=== PATIENT | male | born 1945 | race Caucasian/White ===

== ENCOUNTER → 2021-06-12 | Day surgery (SDC) | payer MEDICARE, OTHER ==
[~2021-06-12] MED LIST: Dextrose 5%-0.45% NaCl 1,000 ML IV SCH; Midazolam 1 MG/ML 2 ML SDV IV ONE; Midazolam 1 MG/ML 2 ML SDV ONE; fentaNYL 100 MCG/2 ML SDV IV ONE; fentaNYL 100 MCG/2 ML SDV ONE
--- NOTE | 2021-06-12 11:38 | OR ---
DATE: 06/12/2021 PROCEDURE: Esophagogastroduodenoscopy and multiple pinch biopsies. INSTRUMENT USED: GIF-HQ190 Olympus video panendoscope. PREMEDICATIONS: No oral or topical anesthesia used. Fentanyl 100 mcg intravenous, Versed 2 mg intravenous. Nasal O2 cannula. The procedure was done under pulse oximetry, BP recording, and monitoring manager. INDICATION: The patient with unexplained iron-deficiency anemia and positive FIT. Esophagogastroduodenoscopy is performed for detection of any active erosive lesions, Ferreira esophagus and/or malignancy also under consideration, H pylori status to be determined, endoscopic hemostasis therapy if needed. DESCRIPTION OF PROCEDURE: The scope was passed with ease. Adequate visualization of the esophagus was made from proximal to distal areas. No upper esophageal lesions identified. No distal esophageal stricture. No uphill or downhill esophageal varices. No Daisy-Negrete tear. No evidence of erosive esophagitis by Cumming criteria. No esophageal polyp or tumor mass identified. Z-line was seen at 40 cm distal to the oral verge. No proximal gastric varices noted. Gastric fundus examination by retroflexion showed no polypoid lesions. No gastric ulcer, malignant mass, or vascular ectasia identified. Gastric antral erosions were noted without bleeding from them. Duodenal bulb showed no ulcer. Visualized second part of the duodenum was unremarkable. Multiple pinch biopsies were taken from the gastric antrum and proximal body and sent for PyloriTek test for H pylori, and if negative in an hour, tissues will be sent for histopathology. No bleeding was noted from any of the visualized areas at the completion of examination. Photographs were taken of the duodenal bulb, gastric antrum, fundus, and distal esophagus. IMPRESSION: Gastric antral erosions. The patient tolerated the procedure well. [facility] /[id number]
--- NOTE | 2021-06-12 11:45 | LETTER ---
06/12/2021 Lissette Gong [facility] [address] [place] [id number] REL Rolo Gimenez : 1945 Dear Ms. Byrnesison Beltran: Mr. Rolo Gimenez had esophagogastroduodenoscopy done this morning and he tolerated the procedure well. I herewith send a copy of endoscopy note and photographs for your review. Thank you. Sincerely, Eri Shirley MD [facility] /[id number]
[2021-06-12 12:51] VITALS: BP 145/58; PULSE 56
== END | disposition home or self-care (01) ==
LOC: DL.ENDO 06:25
PROVIDERS: ATTEND Internal Medicine Gastroenterology
DX: K25.9 Gastric ulcer, unspecified as acute or chronic, without hemorrhage or perforation (principal); D50.9 Iron deficiency anemia, unspecified; R19.7 Diarrhea, unspecified; E66.09 Other obesity due to excess calories; I10 Essential (primary) hypertension; E11.9 Type 2 diabetes mellitus without complications; I25.10 Atherosclerotic heart disease of native coronary artery without angina pectoris; N40.0 Benign prostatic hyperplasia without lower urinary tract symptoms; K21.9 Gastro-esophageal reflux disease without esophagitis; D69.6 Thrombocytopenia, unspecified; D72.819 Decreased white blood cell count, unspecified; Z88.0 Allergy status to penicillin; Z95.5 Presence of coronary angioplasty implant and graft; Z68.29 Body mass index [BMI] 29.0-29.9, adult
CPT/HCPCS: 43239; 87077; J2250; J3010; J7042

== ENCOUNTER 2021-06-19 06:03 | Day surgery (SDC) | payer MEDICARE, OTHER ==
[~2021-06-19 06:03] MED LIST changes: -Midazolam 1 MG/ML 2 ML SDV IV ONE; +Sodium Chloride 0.9% 10 ML Syringe FLUSH PRN; -fentaNYL 100 MCG/2 ML SDV IV ONE
[2021-06-19] MEDS ORDERED: Midazolam 1 MG/ML 2 ML SDV IV ONE ×7 (06:04→07:56)
[2021-06-19] MEDS ORDERED: fentaNYL 100 MCG/2 ML SDV IV ONE ×4 (06:04→08:00)
--- NOTE | 2021-06-19 09:59 | OR ---
DATE: 06/19/2021 PROCEDURE: Total colonoscopy and cold snare polypectomy. INSTRUMENT USED: PCF-H190DL Olympus video colonoscope. PREMEDICATIONS: Fentanyl 125 mcg intravenous, Versed 4 mg intravenous, nasal O2 cannula. The procedure was done under pulse oximetry, BP recording, and manager inventory. INDICATION: The patient with positive FIT and anemia. Colonoscopic examination is done for detection of any polypoid lesions and removal, endoscopic hemostasis therapy if needed. DESCRIPTION OF PROCEDURE: Initial rectal exam was unremarkable. Rigid anoscopy showed small internal hemorrhoids without bleeding from them. The colonoscope was passed with ease. In the distal sigmoid colon, diminutive benign-appearing polyp was noted, photograph was taken, cold snare polypectomy was done, the tissue was retrieved and sent for histopathology. There was extensive diverticulosis with severe deformity involving the distal left colon. Technically difficult exam due to significant deformity. The scope was passed up to the ileocecal area. Photographs were taken of the normal-appearing cecum identified by landmarks of appendiceal orifice and double-bulged ileocecal folds. No bleeding was noted from any of the visualized areas at the commencement of the examination. The bowel preparation was found to be adequate, Lemhi scale 2 in the left and right colon, 3 in transverse colon, total score 7. No vascular ectasia. No large isolated ulcerations seen. No evidence of diffuse inflammatory bowel disease in the form of friability, contact bleeding, or ulcerations. Probing the proximal sides of folds and flexures using adequate distention and clearing up the stool material, withdrawal of the scope was made, cecum to rectum time over 6 minutes. No bleeding was noted from any of the visualized areas at the completion of examination. IMPRESSION: 1. Internal hemorrhoids. 2. Diverticulosis. 3. Diminutive colonic polyp. 4. Melanosis coli. The patient tolerated the procedure well. [facility] /[id number]
[2021-06-19 10:46] VITALS: BP 137/70; PULSE 55
--- NOTE | 2021-06-19 12:44 | LETTER ---
06/19/2021 RE: DENNIS GIMENEZ : 1945 JACQUE Marie [address], [id number] Dear Ms. Gong: Mr. Dennis Gimenez had colonoscopic examination done this morning and he tolerated the procedure well. I herewith send a copy of the endoscopy note and photographs for your review. Thank you. Sincerely, [facility] /[id number]
== END 2021-06-19 10:40 | disposition home or self-care (01) ==
LOC: DL.ENDO 06:03
PROVIDERS: ATTEND Internal Medicine Gastroenterology
DX: K63.5 Polyp of colon (principal); D64.9 Anemia, unspecified; K64.8 Other hemorrhoids; K57.30 Diverticulosis of large intestine without perforation or abscess without bleeding; K63.89 Other specified diseases of intestine; E66.09 Other obesity due to excess calories; I10 Essential (primary) hypertension; E11.9 Type 2 diabetes mellitus without complications; I25.10 Atherosclerotic heart disease of native coronary artery without angina pectoris; D69.6 Thrombocytopenia, unspecified; N40.0 Benign prostatic hyperplasia without lower urinary tract symptoms; Z88.0 Allergy status to penicillin; Z68.29 Body mass index [BMI] 29.0-29.9, adult
CPT/HCPCS: 82947; 88305; J2250; J3010; J7042

== ENCOUNTER 2022-12-04 13:05 | Emergency (ER) | payer OTHER, MEDICARE ==
[2022-12-04] MEDS ORDERED: Sodium Chloride 0.9% 10 ML Syringe IV ONE (13:06)
[2022-12-04] MEDS ORDERED: Propofol 200 MG/20 ML SDV IV ONE (13:06)
[2022-12-04] MEDS ORDERED: Ketamine 500 mg/10 ML MDV IV ONE (13:06)
[2022-12-04] MEDS ORDERED: Midazolam 1 MG/ML 2 ML SDV IV ONE (13:06)
[2022-12-04] MEDS ORDERED: Sodium Chloride 0.9% 500 ML IV ONE (13:06)
[2022-12-04] MEDS ORDERED: Ondansetron 4 MG/2 ML SDV IV ONE (13:06)
[2022-12-04] MEDS ORDERED: Lidocaine 1% 30 ML SDV ONE (13:06)
[2022-12-04 13:30] VITALS: BP 159/134; PULSE 94
[2022-12-04] MEDS ORDERED: fentaNYL 100 MCG/2 ML SDV IVPUSH ONE (13:30)
[2022-12-04] MEDS ORDERED: Acetaminophen/HYDROcodone 325-10 MG Tab PO ONE (16:02)
== END 2022-12-04 16:15 | disposition home or self-care (01) ==
LOC: DL.ED 13:05
DX: S82.851A Displaced trimalleolar fracture of right lower leg, initial encounter for closed fracture (principal); E78.00 Pure hypercholesterolemia, unspecified; I25.10 Atherosclerotic heart disease of native coronary artery without angina pectoris; I10 Essential (primary) hypertension; E11.9 Type 2 diabetes mellitus without complications; E66.9 Obesity, unspecified; Z88.0 Allergy status to penicillin; Z79.899 Other long term (current) drug therapy; Z79.84 Long term (current) use of oral hypoglycemic drugs; W18.40XA Slipping, tripping and stumbling without falling, unspecified, initial encounter
CPT/HCPCS: 01462; 27818; 73610; 93010; 96374; 99152; 99153; 99283; 99284; A9270; J2250; J2405; J2704; J3010; J3490; J7040

== ENCOUNTER 2023-06-28 02:47 | Emergency (ER) | payer OTHER ==
[2023-06-28 03:49] VITALS: PULSE 58
[2023-06-28] MEDS ORDERED: cloNIDine 0.1 MG Tab PO ONE (03:56)
[2023-06-28 04:00] VITALS: BP 213/88
[2023-06-28] MEDS ORDERED: Labetalol 20 MG/4 ML Syringe IVPUSH ONE (04:26)
== END 2023-06-28 06:54 | disposition home or self-care (01) ==
LOC: DL.ED 02:47
DX: I16.0 Hypertensive urgency (principal); I10 Essential (primary) hypertension; R00.1 Bradycardia, unspecified; E78.00 Pure hypercholesterolemia, unspecified; E11.9 Type 2 diabetes mellitus without complications; I25.10 Atherosclerotic heart disease of native coronary artery without angina pectoris; E66.9 Obesity, unspecified; Z68.31 Body mass index [BMI] 31.0-31.9, adult; Z87.891 Personal history of nicotine dependence; Z95.5 Presence of coronary angioplasty implant and graft; Z88.0 Allergy status to penicillin; Z79.899 Other long term (current) drug therapy
CPT/HCPCS: 96374; 99284; A9270; J3490; 93010

== ENCOUNTER 2023-09-07 00:31 | Emergency (ER) | payer OTHER ==
[2023-09-07] MEDS ORDERED: hydrALAZINE 20 MG/ML SDV IVPUSH ONE (01:46)
[2023-09-07 02:01] VITALS: BP 152/75; PULSE 68
== END 2023-09-07 03:26 | disposition home or self-care (01) ==
LOC: DL.ED 00:31
DX: I10 Essential (primary) hypertension (principal); Z88.0 Allergy status to penicillin
CPT/HCPCS: 96374; 99283; 99284-25; J0360